=== PATIENT | female | born 1970 | race Caucasian/White ===

== ENCOUNTER 2016-09-01 14:47 | Emergency (ER) | payer SELFPAY ==
[~2016-09-01] VITALS: Ht 154.9 cm; Wt 72.6 kg
--- NOTE | 2016-09-01 14:47 | NUR ---
Patient was BIBA at this time.
--- NOTE | 2016-09-01 14:55 | NUR ---
Patient taken to bed 06 via wheelchair per tech.
[2016-09-01 14:56] VITALS: BP 131/78
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
--- NOTE | 2016-09-01 15:05 | NUR ---
Patient going to XRAY via wheelchair per tech.
--- NOTE | 2016-09-01 15:05 | NUR ---
BRIELLEO PT TAKEN OFF THE UNIT VIA WHEEL CHAIR FOR XRAY BY KAMI SPEAR AND KAMI DEL REAL
[2016-09-01] MEDS ORDERED: KETOROLAC 30 MG/ML VIAL IM ONE (15:40)
[2016-09-01 16:12] VITALS: BP 131/78
--- NOTE | 2016-09-01 16:12 | NUR ---
Patient discharged with v/s stable. Written and verbal after care instructions given and explained. Patient alert, oriented and verbalized understanding of instructions. Ambulatory with steady gait. All questions addressed prior to discharge. ID band removed. Patient advised to follow up with PMD. Rx of FEXERIL, MOTRIN given. Patient educated on indication of medication including possible reaction and side effects. Opportunity to ask questions provided and answered.
== END 2016-09-01 16:12 | disposition home or self-care (01) ==
LOC: MED 14:47
DX: S16.1XXA Strain of muscle, fascia and tendon at neck level, initial encounter (principal); S39.012A Strain of muscle, fascia and tendon of lower back, initial encounter; V89.2XXA Person injured in unspecified motor-vehicle accident, traffic, initial encounter; Y93.89 Activity, other specified; Y92.410 Unspecified street and highway as the place of occurrence of the external cause; Y99.8 Other external cause status
CPT/HCPCS: 72040; 72110; 81001; 81025; 96372; 99285; J1885

== ENCOUNTER 2016-09-17 16:32 | Emergency (ER) | payer SELFPAY ==
[~2016-09-17] VITALS: Ht 152.4 cm; Wt 70.3 kg
[2016-09-17 17:32] VITALS: BP 134/74
--- NOTE | 2016-09-17 20:43 | NUR ---
TO ER OF1
--- NOTE | 2016-09-17 20:44 | NUR ---
Patient being evaluated by physician.
[2016-09-17] MEDS ORDERED: IBUPROFEN 800 MG TAB PO ONE (20:55)
[2016-09-17 22:25] VITALS: BP 127/68
--- NOTE | 2016-09-17 22:25 | NUR ---
Patient discharged with v/s stable. Written and verbal after care instructions given and explained. Patient alert, oriented and verbalized understanding of instructions. Ambulatory with steady gait. All questions addressed prior to discharge. ID band removed. Patient advised to follow up with PMD. Rx of Flexeril given. Patient educated on indication of medication including possible reaction and side effects. Opportunity to ask questions provided and answered.
== END 2016-09-17 22:25 | disposition home or self-care (01) ==
LOC: MED 16:32
DX: S70.01XA Contusion of right hip, initial encounter (principal); F07.81 Postconcussional syndrome; R03.0 Elevated blood-pressure reading, without diagnosis of hypertension; V89.2XXA Person injured in unspecified motor-vehicle accident, traffic, initial encounter; Y93.89 Activity, other specified; Y92.89 Other specified places as the place of occurrence of the external cause; Y99.8 Other external cause status

== ENCOUNTER 2022-11-26 13:26 | Emergency (ER) | payer MEDICAID ==
[~2022-11-26] VITALS: Ht 154.9 cm; Wt 77.1 kg
[2022-11-26 13:55] VITALS: BP 142/68; PULSE 73; RESP 17; TEMP 97.7; O2SAT 97
--- NOTE | 2022-11-26 14:21 | NUR ---
No answer when called from lobby or outside lobby
--- NOTE | 2022-11-26 14:36 | NUR ---
No answer x2
--- NOTE | 2022-11-26 15:08 | NUR ---
No answer in lobby or outside
--- NOTE | 2022-11-26 15:10 | NUR ---
PATIENT LEFT WITHOUT BEING SEEN BY DR. DR VILLA. NO FURTHER CARE PROVIDED FOR PATIENT.
[2022-11-27] MEDS ORDERED: LEVO750T75 PO (18:42)
== END 2022-11-26 15:10 | disposition left against medical advice (07) ==
LOC: MED 13:26
DX: R51.9 Headache, unspecified (principal); Z53.21 Procedure and treatment not carried out due to patient leaving prior to being seen by health care provider
CPT/HCPCS: 99281

== ENCOUNTER 2022-11-26 22:34 | Inpatient (IN) | payer MEDICAID ==
[~2022-11-26] VITALS: Ht 154.9 cm; Wt 77.1 kg
[2022-11-26 22:50] VITALS: BP 130/81; PULSE 76; RESP 17; TEMP 98.1; O2SAT 98
[2022-11-27 01:19] LABS: APPEARANCE,URINE CLEAR (CLEAR); BILIRUBIN,URINE NEGATIVE (NEGATIVE); BLOOD, URINE NEGATIVE (NEGATIVE); COLOR,URINE YELLOW (YELLOW); LEUKOCYTE ESTERASE ,URINE 1+ (NEGATIVE); NITRITE, URINE NEGATIVE (NEGATIVE); PROTEIN,URINE NEGATIVE (NEGATIVE); UGLUCOSE NEGATIVE (NEGATIVE); UROBILINOGEN,URINE 0.2 EU/dL (0.2 - 1)
[2022-11-27] MEDS ORDERED: HYDROcodone/APAP 10/325 MG 1 TAB TAB PO PRN ×2 (01:20→12:40)
[2022-11-27 01:22] LABS: BASOPHILS # (AUTO) 0.1 K/uL (0.00-0.22); BASOPHILS % (AUTO) 0.9 % (0.0-2.0); EOSINOPHILS # (AUTO) 0.3 K/uL (0-0.4); EOSINOPHILS % (AUTO) 3.8 % (0.0-4.0); HEMATOCRIT 43.3 % (36-48); HEMOGLOBIN 14.6 g/dL (12.0-16.0); LYMPHOCYTES # (AUTO) 2.5 K/uL (2.5-16.5); LYMPHOCYTES % (AUTO) 37.4 % (20.5-51.1); MEAN CORPUSCULAR HEMOGLOBIN 31 pg (27-31); MEAN CORPUSCULAR HGB CONC 34 g/dL (33-37); MEAN CORPUSCULAR VOLUME 91.9 fL (80-94); MONOCYTES # (AUTO) 0.5 K/uL (0.8-1.0); MONOCYTES % (AUTO) 8.1 % (1.7-9.3); NEUTROPHILS # (AUTO) 3.3 K/uL (1.8-7.7); NEUTROPHILS % (AUTO) 49.8 % (42.2-75.2); PLATELET COUNT (AUTO) 198 K/uL (140-450); RED BLOOD CELL COUNT(AUTO) 4.71 MIL/uL (4.20-5.40); WHITE BLOOD COUNT (AUTO) 6.6 K/uL (4.8-10.8)
[2022-11-27 01:25] LABS: RBC,URINE 0-5 /HPF (0-5); WBC,URINE >25 (MANY) /HPF (0-5)
[2022-11-27 01:26] LABS: BACTERIA,URINE >30 (MANY) /HPF (None Seen); MUCUS,URINE 1+ /LPF (None Seen); SQUAMOUS EPITHELIAL CELL,UR 0-3 (FEW) /LPF (0-3 (FEW))
[2022-11-27 01:33] LABS: ALBUMIN 3.7 g/dL (3.4-5.0); ANION GAP 13.9 (8-16); CALCIUM 9.2 mg/dL (8.5-10.1); CARBON DIOXIDE 25.9 mmol/L (21-32); CREATININE 0.7 mg/dL (0.6-1.3); POTASSIUM 3.8 mmol/L (3.5-5.1); TOTAL BILIRUBIN 0.3 mg/dL (0.0-1.0); TOTAL PROTEIN, SERUM 7.3 g/dL (6.4-8.2)
[2022-11-27 01:41] LABS: LACTIC ACID 0.8 mmol/L (0.4-2.0)
[2022-11-27] MEDS ORDERED: NACL 0.9% 1,000 ML IV ONE (01:55)
[2022-11-27] MEDS ORDERED: KETOROLAC 30 MG/ML VIAL IVP ONE (01:55)
[2022-11-27] MEDS ORDERED: cefTRIAXone 1,000 MG VIAL ONE (02:33)
[2022-11-27] MEDS ORDERED: metroNIDAZOLE 250 MG/NS PREMIX 50 ML IV SCH (05:00)
[2022-11-27] MEDS ORDERED: metroNIDAZOLE 250 MG TAB ONE (05:04)
[2022-11-27] MEDS ORDERED: metroNIDAZOLE 500 MG/NS PREMIX 100 ML IV ONE (05:10)
[2022-11-27] MEDS ORDERED: HYDROcodone/APAP 7.5/325 MG 1 TAB PO PRN (05:50)
[2022-11-27] MEDS ORDERED: DOCUSATE SODIUM 100 MG GELCAP PO PRN (05:50)
[2022-11-27] MEDS ORDERED: ZOLPIDEM 5 MG TAB PO PRN (05:50)
[2022-11-27] MEDS ORDERED: guaiFENesin DM 200/20 MG-10 ML 10 ML UDC PO PRN (05:50)
[2022-11-27] MEDS ORDERED: ACETAMINOPHEN 325 MG TAB PO PRN (05:50)
[2022-11-27] MEDS ORDERED: POTASSIUM CHLORIDE 10 MEQ TABER PO PRN (05:50)
[2022-11-27] MEDS ORDERED: ONDANSETRON 4 MG/2 ML VIAL IM/IVP PRN (05:50)
[2022-11-27] MEDS: NACL 0.9% 1,000 ML IV SCH ×2 (06:01→10:26)
[2022-11-27 07:26] VITALS: O2SAT 99
[2022-11-27 08:25] VITALS: BP 124/69; PULSE 79; RESP 18; TEMP 97.9; O2SAT 99
[2022-11-27] MEDS ORDERED: PANTOPRAZOLE 40 MG TABEC PO SCH (09:00)
[2022-11-27] MEDS ORDERED: metroNIDAZOLE 500 MG/NS PREMIX 100 ML IV SCH (13:00)
[2022-11-27 16:00] VITALS: BP 134/66; PULSE 68; RESP 18; TEMP 97.3; O2SAT 98
[2022-11-27] MEDS ORDERED: LEVO750T75 PO (18:42)
== END 2022-11-27 20:35 | disposition home or self-care (01) ==
LOC: MED 22:34 → MMU 11-27 05:53 → MTU 11-27 08:49
PROVIDERS: ADMIT Student in an Organized Health Care Education/Training Program; ATTEND Student in an Organized Health Care Education/Training Program
DX: K80.12 Calculus of gallbladder with acute and chronic cholecystitis without obstruction (principal); K42.9 Umbilical hernia without obstruction or gangrene; N39.0 Urinary tract infection, site not specified
CPT/HCPCS: 36415; 71045; 76705; 80053; 81001; 83605; 83690; 85025; 86886; 86900; 86901; 87040; 87081; 87086; 93005; 96365; 96375; 99285; J0696; J1885; J3490; J7060; Q0092; Q9967